=== PATIENT | male | born 1960 | race Caucasian/White ===

== ENCOUNTER 2018-06-16 02:35 | Outpatient (CLI) | payer OTHER, SELFPAY ==
[2018-06-16 12:14] LABS: Anion Gap 8.9 mmol/L (3-11); BUN 10 mg/dL (7-18); CO2 27.1 mmol/L (21.0-32.0); Chloride 105 mmol/L (98-107); Glucose 112 mg/dL (70-100); Potassium 4.5 mmol/L (3.5-5.1); Sodium 141 mmol/L (136-145)
== END 2018-06-16 02:55 ==
PROVIDERS: PCP Family Medicine; Visit Provider Family Medicine
DX: I10 Essential (primary) hypertension (principal)
CPT/HCPCS: 36415; 80048

== ENCOUNTER 2018-10-29 13:31 | Outpatient (CLI) | payer OTHER, SELFPAY ==
--- NOTE | 2018-10-29 14:00 | DI.RAD_ITS ---
SYMPTOMS/DIAGNOSIS: CHRONIC PAIN RT KNEE, M25.569 RIGHT KNEE: Medial tibiofemoral joint space narrowing, articular sclerosis and periarticular hypertrophic spurring are demonstrated. There may be a small joint effusion. SUMMARY: Findings consistent with severe DJD.
== END 2018-10-29 13:51 ==
PROVIDERS: PCP Family Medicine; Visit Provider Family Medicine
DX: M25.561 Pain in right knee (principal); M17.11 Unilateral primary osteoarthritis, right knee; M25.461 Effusion, right knee
CPT/HCPCS: 73562

== ENCOUNTER 2019-07-01 02:56 | Outpatient (CLI) | payer OTHER, SELFPAY ==
[2019-07-01 12:08] LABS: Anion Gap 9.7 mmol/L (3-11); BUN 15 mg/dL (7-18); CO2 26.3 mmol/L (21.0-32.0); Calcium 8.6 mg/dL (8.5-10.1); Calculated LDL 113 mg/dL (<100); Chloride 104 mmol/L (98-107); Cholesterol 162 mg/dL (<200); Glucose 102 mg/dL (74-106); HDL Cholesterol 35 mg/dL (40-60); Potassium 4.2 mmol/L (3.5-5.1); Sodium 140 mmol/L (136-145); Triglyceride 73 mg/dL (<150)
== END 2019-07-01 03:16 ==
PROVIDERS: PCP Family Medicine; Visit Provider Family Medicine
DX: Z00.00 Encounter for general adult medical examination without abnormal findings (principal); I10 Essential (primary) hypertension
CPT/HCPCS: 36415; 80048; 80061

== ENCOUNTER 2020-07-12 03:31 | Outpatient (CLI) | payer BC, SELFPAY ==
[2020-07-12 12:48] LABS: Anion Gap 10.3 mmol/L (3-11); BUN 13 mg/dL (7-18); CO2 27.7 mmol/L (21.0-32.0); Calculated LDL 117 mg/dL (<100); Chloride 104 mmol/L (98-107); Cholesterol 200 mg/dL (<200); Glucose 104 mg/dL (74-106); HDL Cholesterol 46 mg/dL (40-60); Potassium 4.7 mmol/L (3.5-5.1); Sodium 142 mmol/L (136-145); Triglyceride 189 mg/dL (<150)
[2020-07-12 13:00] LABS: Calcium 9.7 mg/dL (8.5-10.1)
== END 2020-07-12 03:32 | disposition home or self-care (01) ==
PROVIDERS: PCP Family Medicine; Visit Provider Nurse Practitioner Family
DX: Z00.00 Encounter for general adult medical examination without abnormal findings (principal); Z13.220 Encounter for screening for lipoid disorders; Z13.228 Encounter for screening for other metabolic disorders
CPT/HCPCS: 36415; 80048; 80061

== ENCOUNTER 2020-11-04 07:09 | Day surgery (SDC) | payer BC, SELFPAY ==
[2020-11-04 07:28] VITALS: BP 152/86; PULSE 105; RESP 18; TEMP 36.4; O2SAT 97
[2020-11-04] MEDS: Lactated Ringers 1,000 ML 80 ML IV (07:38)
--- NOTE | 2020-11-04 07:57 | W.ANESPRE ---
General Info Date of Service Date Performed: 11/04/20 Height: 5 ft 10 in Weight: 110.9 kg Body Mass Index (BMI): 35.0 Surgical Procedure: Operation Date: 11/04/20 08:50 Proposed Procedures Side Surgeon justin Schroeder MD Meds Allergies and Home Medications Allergies Allergy/AdvReac Type Severity Reaction Status Date / Time rosuvastatin calcium AdvReac MYALGIAS Verified 11/04/20 07:23 [From Crestor] Home Medication Medication Instructions Recorded acetaminophen [Tylenol Extra 2 tab PO BID PRN tab-cap 06/19/12 Strength] ascorbic acid (vitamin C) [Vitamin 1 tab PO DAILY 06/19/12 C] ibuprofen 1 mg PO TID PRN #90 tab-cap 06/19/12 omega-3 fatty acids-fish oil [Fish 1 ea PO DAILY 06/19/12 Oil 1,000 Mg Capsule] vitamin B complex 1 ea PO DAILY 06/19/12 tramadol 37.5 mg-acetaminophen 325 1 - 2 tab PO Q6H PRN #120 tab 02/17/19 mg tablet cyclobenzaprine 10 mg tablet 10 mg PO TID PRN #90 tab-cap 02/07/20 pravastatin 40 mg tablet 40 mg PO DAILY #90 tab 04/14/20 metaxalone 800 mg tablet 400 mg PO DAILY #30 tab 08/24/20 aspirin 81 mg tablet,delayed 81 mg PO DAILY 10/20/20 release bisacodyl 5 mg tablet,delayed 5 mg PO ONCE #4 tab 10/20/20 release polyethylene glycol 3350 17 238 g PO ONCE #238 g 10/20/20 gram/dose oral powder amlodipine 10 mg PO HS 11/02/20 lisinopril 10 mg PO HS 11/02/20 Current Visit Medications: Current Medications Generic Name Dose Route Start Last Admin Trade Name Freq PRN Reason Stop Dose Admin Ringer's Solution 1,000 mls @ 80 mls/hr 11/04/20 06:00 11/04/20 07:38 IV 12/03/20 23:59 80 mls/hr INFUSION LANEY Administration IV Miscellaneous Supplies 1 each 11/04/20 06:00 Iv Access IV 12/03/20 23:59 DIRECTED LANEY Sodium Chloride 0 ml 11/04/20 06:00 Normal Saline Flush 10 Ml Syr IV 12/03/20 23:59 PRN PRN Sodium Chloride 0 ml 11/04/20 06:00 Normal Saline 10 Ml Vial IJ 12/03/20 23:59 DIRECTED PRN Sterile Water 0 ml 11/04/20 06:00 Water,Injection,Sterile 10 Ml Vial IJ 12/03/20 23:59 DIRECTED PRN PFSH Active Problems Active Problems: Problem Status Onset Code Metatarsalgia of left foot 08/18/15 M77.42 Hyperlipidemia E78.5 Essential hypertension 06/08/16 I10 Status post coronary artery stent placement Z95.5 Smoker F17.200 History of spinal fusion Z98.1 Atherosclerosis of [place] coronary artery I25.10 Alcohol abuse F10.10 Screening for colon cancer Z12.11 Hamstring muscle strain S76.319A History of total knee arthroplasty Z96.659 Atherosclerosis of [place] coronary artery of [place] heart without angina pectoris I25.10 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 Combs 1999 x 2 Surgical History Surgical History History of total knee arthroplasty Right knee History of total right knee replacement (TKR) Spinal Fusion [address] COMBS Stent placement (~2006) RCA titaium plate-left mandible Tobacco Smoking/Tobacco Use Status: Former Tobacco Use Tobacco: How many years used: 14 Passive smoking exposure: Yes Second hand exposure: Yes Alcohol Alcohol Intake: current Alcohol intake frequency: a few times a month Alcohol type: beer Substance Use Substance use: Never Substance use type: does not use Vital Signs and Lab Results Vital Signs Most Recent Vital Signs in EMR: Most Recent Vital Signs Temp Pulse Resp BP Pulse Ox 36.4 C L 105 H 18 152/86 H 97 11/04/20 07:28 11/04/20 07:28 11/04/20 07:28 11/04/20 07:28 11/04/20 07:28 Lab Results Blood Type / Crossmatch: No Data to Display Complete Blood Count: No Data to Display Complete Metabolic Panel: No Data to Display Liver Function Panel: No Data to Display Coagulation Panel: No Data to Display Cardiac Panel: No Data to Display Arterial Blood Gas: No Data to Display Venous Blood Gas: No Data to Display Pancreas Panel: No Data to Display Thyroid Panel: No Data to Display Infectious Disease: No Data to Display Blood Cultures: No Data to Display Toxicology Panel: No Data to Display Anesthesia Assessment and Plan Anesthesia History Personal History: No History of Anesthesia Complications Family History: No Family History of Anesthesia Complications Exercise Tolerance Exercise Tolerance: Metabolic Equivalents>4 Pertinent Negatives Pertinent Negatives: No Symptoms of GERD, No Major Cardiovascular Symptoms or Complaints, No Major Pulmonary Symptoms or Complaints and No History of CVA/TIA Cardiac & Pulmonary Exam Cardiac Exam: Normal S1/S2 Heart Sounds Pulmonary Exam: Clear Bilateral Breath Sounds Airway Exam Known Difficult Airway: No Mallampati Class: 1 Mouth Opening: Normal (> 3cm) Thyromental Distance: Greater than 3 cm Neck Range of Motion: Full ROM Neck Circumference: Normal Teeth Condition: Normal Dentition ASA Classification ASA Score: ASA 2 Emergency Case?: No NPO Status NPO Status: NPO Clears >2 hours, Solids >8 hours Anesthesia Plan Resuscitation Status: Full Code Anesthesia Technique: General Anesthesia Airway Planned: Natural Airway Monitors Used: Standard Monitors
[2020-11-04 08:41] VITALS: BMI 35.0
--- NOTE | 2020-11-04 09:53 | W.COLOREPORT ---
Date of service: 11/04/20 Time of Service: 09:53 Colonoscopy Report Date of procedure: 11/04/20 Pre-op diagnosis general: Screening colonoscopy Post-op diagnosis procedure note: same Procedure: Colonoscopy Surgeon: Jose Schroeder Anesthesia Type: MAC Estimated blood loss (mL): 0 Pathology: none sent Complications: None Disposition: same day Indications: 60-year-old male here for first colonoscopy for colorectal cancer screening. Prep: Miralax/Dulcolax Findings: Small internal hemorrhoids. Normal colon. Procedure Description: After informed consent was obtained, the patient was taken to the procedure room and placed in a left decubitus position. Monitors were applied and a time out was done. The patient's name, date of , procedure, allergies to medications, and metal in their body were reviewed. The patient was then sedated. Once sedated and comfortable, a digital rectal exam was done. External exam was normal. Internal exam revealed good sphincter tone, and no palpable masses or gross blood. The colonoscope was then introduced and advanced to the cecum under direct visualization with no difficulty. The ileocecal valve and appendiceal orifice were visualized. The prep was fair. The scope was then slowly withdrawn for over 10 minutes in a circumferential manner to the rectum. In doing so, no polyps were encountered. There was no diverticulosis noted. The mucosa is pink and healthy. In the rectum, the scope was retroflexed, and mild internal hemorrhoids were noted. The scope was straightened and withdrawn from the anus. The patient tolerated the procedure well, and there were no immediate complications. The patient was taken to the Day Surgery Unit recovery area in good condition. Follow up: 10 years
--- NOTE | 2020-11-04 09:54 | W.PM.DSUDISC ---
Discharge Plan Disposition Patient Disposition: HOME Condition: Good Discharge Details Reason For Visit: Screening colonoscopy Attending Provider: Jose Schroeder Primary Care Provider: Suresh Lugo Home Meds and New Rx's Prescriptions: No Action aspirin [Adult Aspirin Regimen] 81 mg tablet,delayed release (DR/EC) 81 mg PO DAILY RF: 0 bisacodyl [Dulcolax (bisacodyl)] 5 mg tablet,delayed release (DR/EC) 5 mg PO ONCE Qty: 4 RF: 0 polyethylene glycol 3350 17 gram/dose powder 238 g PO ONCE Qty: 238 RF: 0 acetaminophen [Tylenol Extra Strength] 500 MG tablet 2 tab PO BID PRNRF: 0 ascorbic acid (vitamin C) [Vitamin C] 500 MG tablet 1 tab PO DAILY RF: 0 vitamin B complex 1 EACH tablet 1 ea PO DAILY RF: 0 ibuprofen 600 MG tablet 1 mg PO TID PRNQty: 90 RF: 4 Fish Oil 1 EACH capsule 1 ea PO DAILY RF: 0 tramadol-acetaminophen [Ultracet] 37.5-325 mg tablet 1 - 2 tab PO Q6H PRN Qty: 120 RF: 2 cyclobenzaprine 10 mg tablet 10 mg PO TID PRN (Reason: muscle spasm) Qty: 90 RF: 3 pravastatin 40 mg tablet 40 mg PO DAILY Qty: 90 RF: 4 metaxalone [Skelaxin] 800 mg tablet 400 mg PO DAILY Qty: 30 RF: 3 amlodipine 10 mg tablet 10 mg PO HS RF: 0 lisinopril 10 mg tablet 10 mg PO HS RF: 0 Discharge Instructions Instructions: Colonoscopy (DC) Activity:: Activity as Tolerated Diet:: As Tolerated DS: Diagnosis Discharge Diagnosis (1) Encounter for screening colonoscopy: Status: Acute Asessment and Plan: 60yo male presented for screening colonoscopy. No polyps or concerning masses encountered. --repeat colonoscopy in 10 years, or sooner if develops symptoms
[2020-11-04 10:01] VITALS: BP 108/71; PULSE 89; RESP 14; TEMP 36.3; O2SAT 95
--- NOTE | 2020-11-04 10:25 | W.ANESPOSTOP ---
Postoperative Evaluation Date, Time and Location Date Performed: 11/04/20 Time Performed: 10:03 Patient Location: Day Surgery Unit Vital Signs Most Recent Imported Vital Signs: Most Recent Vital Signs Temp Pulse Resp BP Pulse Ox 36.3 C L 89 14 108/71 95 11/04/20 10:01 11/04/20 10:01 11/04/20 10:01 11/04/20 10:01 11/04/20 10:01 Pain Score Most Recent Pain Score: Most Recent Pain Score Pain Level 0 11/04/20 10:01 Assessment Mental Status: Awake (Alert & Oriented to Patient Baseline) Airway and Respiratory Function: Patent airway with normal (patient baseline) respiratory exam Cardiovascular Function: Hemodynamically Stable Hydration Status: Adequately Hydrated Nausea & Vomiting: No Nausea or Vomiting Pain: Pt. Denies Any Pain Peripheral Nerve Block: Patient did not receive a nerve block
[2020-11-04 10:33] VITALS: BP 120/76; PULSE 75; RESP 16; TEMP 36.6; O2SAT 100
== END 2020-11-04 10:50 | disposition home or self-care (01) ==
PROVIDERS: PCP Family Medicine; Visit Provider Surgery
PROC: 0DJD8ZZ Inspection of Lower Intestinal Tract, Via Natural or Artificial Opening Endoscopic (ICD-10-PCS; CPT 45378; principal; 2020-11-04 08:45)
DX: Z12.11 Encounter for screening for malignant neoplasm of colon (principal); K64.8 Other hemorrhoids; I25.10 Atherosclerotic heart disease of native coronary artery without angina pectoris
CPT/HCPCS: 45378; J2001

== ENCOUNTER 2021-07-25 03:21 | Outpatient (CLI) | payer BC, SELFPAY ==
[2021-07-25 08:56] LABS: Anion Gap 8.3 mmol/L (3-11); BUN 15 mg/dL (7-18); CO2 26.7 mmol/L (21.0-32.0); CREATININE 0.8 mg/dL (0.70-1.30); Calculated LDL 112 mg/dL (<100); Chloride 102 mmol/L (98-107); Cholesterol 195 mg/dL (<200); Glucose 102 mg/dL (74-106); HDL Cholesterol 44 mg/dL (40-60); Potassium 4.7 mmol/L (3.5-5.1); Sodium 137 mmol/L (136-145); Triglyceride 199 mg/dL (<150)
== END 2021-07-25 03:22 | disposition home or self-care (01) ==
LOC: LBO 03:21
PROVIDERS: PCP Family Medicine; Visit Provider Family Medicine
DX: Z00.00 Encounter for general adult medical examination without abnormal findings (principal); I10 Essential (primary) hypertension
CPT/HCPCS: 36415; 80048; 80061

== ENCOUNTER 2022-08-01 02:55 | Outpatient (CLI) | payer BC, SELFPAY ==
[2022-08-01 08:26] LABS: ALT 59 U/L (16-63); AST 31 U/L (15-37); Albumin 3.9 g/dL (3.4-5.0); Alkaline Phosphatase 105 U/L (46-116); Anion Gap 8.5 mmol/L (3-11); BUN 18 mg/dL (7-18); Bilirubin, Total 0.4 mg/dL (0.2-1.0); CO2 25.5 mmol/L (21.0-32.0); Calcium 9.2 mg/dL (8.5-10.1); Calculated LDL 99 mg/dL (<100); Chloride 103 mmol/L (98-107); Cholesterol 177 mg/dL (<200); Estimated GFR 86.16 (mL/min/1.73m2); Glucose 123 mg/dL (74-106); HDL Cholesterol 44 mg/dL (40-60); Potassium 4.5 mmol/L (3.5-5.1); Sodium 137 mmol/L (136-145); Total Protein 7.6 g/dL (6.4-8.2); Triglyceride 171 mg/dL (<150)
== END 2022-08-01 02:56 | disposition home or self-care (01) ==
LOC: LBO 02:56
PROVIDERS: Family Medicine; PCP Nurse Practitioner Family; Visit Provider Nurse Practitioner Family
DX: Z00.00 Encounter for general adult medical examination without abnormal findings (principal); I10 Essential (primary) hypertension; E78.5 Hyperlipidemia, unspecified
CPT/HCPCS: 36415; 80053; 80061

== ENCOUNTER 2023-07-26 01:04 | Outpatient (CLI) | payer BC, SELFPAY ==
[2023-07-26 12:24] LABS: Calculated LDL 106 mg/dL (<100); Cholesterol 184 mg/dL (<200); Estimated GFR 85.63 (mL/min/1.73m2); HDL Cholesterol 55 mg/dL (40-60); Potassium 4.4 mmol/L (3.5-5.1); Triglyceride 118 mg/dL (<150)
[2023-07-26 13:08] LABS: Hemoglobin A1C 5.7 % (<5.7)
== END 2023-07-26 01:05 | disposition home or self-care (01) ==
LOC: LOS 01:04
PROVIDERS: PCP Nurse Practitioner Family; Visit Provider Nurse Practitioner Family
DX: Z00.00 Encounter for general adult medical examination without abnormal findings (principal)
CPT/HCPCS: 36415; 80061; 82565; 83036; 84132

== ENCOUNTER 2024-09-04 01:50 | Outpatient (CLI) | payer BC, SELFPAY ==
[2024-09-04 12:55] LABS: Anion Gap 10.6 mmol/L (3-11); BUN 15 mg/dL (7-18); CO2 25.4 mmol/L (21.0-32.0); CREATININE 0.9 mg/dL (0.70-1.30); Calcium 9.2 mg/dL (8.5-10.1); Calculated LDL 94 mg/dL (<100); Chloride 103 mmol/L (98-107); Cholesterol 168 mg/dL (<200); Estimated GFR 96.57 (mL/min/1.73m2); Glucose 116 mg/dL (74-106); HDL Cholesterol 45 mg/dL (>or=40); Potassium 4.5 mmol/L (3.5-5.1); Sodium 139 mmol/L (136-145); Triglyceride 145 mg/dL (<150)
[2024-09-04 13:00] LABS: Hemoglobin A1C 5.7 % (<5.7)
== END 2024-09-04 01:51 | disposition home or self-care (01) ==
LOC: LOS 01:50
PROVIDERS: PCP Nurse Practitioner Family; Visit Provider Nurse Practitioner Family
DX: Z13.1 Encounter for screening for diabetes mellitus (principal); Z13.220 Encounter for screening for lipoid disorders; I10 Essential (primary) hypertension
CPT/HCPCS: 36415; 80048; 80061; 83036